=== PATIENT | female | born 1970 | race Caucasian/White ===

== ENCOUNTER → 2016-11-14 | Outpatient (CLI) | payer MEDICARE, MEDICAID ==
[2014-03-20 19:59] VITALS: BP 153/74
[~2016-11-14] MED LIST: BARIUM SULFATE 340 GM SUSPENSION. PO ONE; BARIUM SULFATE 60% 355 ML SUSP PO ONE; SIMETHICONE/SOD BICARB/CITRIC ACID PACKET. PO ONE
--- NOTE | 2016-11-14 10:07 | RAD ---
Small bowel series, 11/14/2016: History: Abdominal pain, chronic constipation, intussusception No previous studies are available at this time for correlative purposes. The preliminary abdominal image demonstrates a nonspecific gas pattern. Overhead and spot films were obtained following oral ingestion of liquid barium. 1.1 minutes of fluoroscopy time was utilized. 3 fluoroscopic spot images were recorded. The small bowel loops are of normal caliber with no thickening of their folds. There is no current evidence of obstruction or intussusception. The barium reached the colon at 40 minutes. The terminal ileum is unremarkable. IMPRESSION: No significant small bowel abnormality is detected.
== END | disposition home or self-care (01) ==
LOC: RAD 07:51
PROVIDERS: ATTEND Surgery
DX: K56.1 Intussusception (principal)
CPT/HCPCS: 74250